=== PATIENT | male | born 1970 | race African-American/Black ===

== ENCOUNTER 2018-07-10 23:52 | Emergency (ER) | payer SELFPAY ==
[~2018-07-10] VITALS: Ht 195.6 cm; Wt 145.1 kg
[~2018-07-10 23:52] MED LIST: CEFP500T4 PO; METH4TAB PO
[2018-07-11] MEDS ORDERED: DEXAMETHASONE 4 MG/ML SDV (DECADRON) ONE (00:46)
[2018-07-11] MEDS ORDERED: RT-ALBUTEROL/IPRATROPIUM 3 ML (DUONEB) VIAL ONE (00:46)
[2018-07-11 00:52] LABS: BASOPHILS % (AUTO) 0 % (0-10); EOSINOPHILS # (AUTO) 0.1 10^3/uL (0.0-0.3); EOSINOPHILS % (AUTO) 1 % (0-10); HEMATOCRIT 37 % (40-54); HEMOGLOBIN 12.5 G/DL (13.3-17.7); LYMPHOCYTES # (AUTO) 1.3 X 10^3 (1.0-4.0); LYMPHOCYTES % (AUTO) 16 % (12-44); MEAN CORPUSCULAR HEMOGLOBIN 30 PG (25-34); MEAN CORPUSCULAR HGB CONC 34 G/DL (32-36); MEAN CORPUSCULAR VOLUME 90 FL (80-99); MEAN PLATELET VOLUME 11.1 FL (7.4-10.4); MONOCYTES % (AUTO) 13 % (0-12); NEUTROPHILS # (AUTO) 5.3 X 10^3 (1.8-7.8); NEUTROPHILS % (AUTO) 69 % (42-75); PLATELET COUNT 270 10^3/uL (130-400); RED BLOOD COUNT 4.13 10^6/uL (4.35-5.85); WHITE BLOOD COUNT 7.6 10^3/uL (4.3-11.0)
[2018-07-11] MEDS ORDERED: methylPREDNISolone 125 MG (Solu-MEDROL) VIAL IV STA (00:52)
[2018-07-11] MEDS ORDERED: RT-ALBUTEROL/IPRATROPIUM 3 ML (DUONEB) VIAL INH ONE (01:00)
[2018-07-11] MEDS ORDERED: DEXAMETHASONE 4 MG/ML SDV (DECADRON) IH ONE (01:00)
[2018-07-11 01:06] LABS: PROTHROMBIN TIME PATIENT 13.4 SEC (12.2-14.7)
[2018-07-11 01:11] LABS: ALANINE AMINOTRANSFERASE 49 U/L (0-55); ALBUMIN 3.4 GM/DL (3.2-4.5); ALKALINE PHOSPHATASE 42 U/L (40-136); BILIRUBIN,TOTAL 0.8 MG/DL (0.1-1.0); BUN/CREATININE RATIO 11; CALCIUM 8.3 MG/DL (8.5-10.1); CARBON DIOXIDE 19 MMOL/L (21-32); CHLORIDE 108 MMOL/L (98-107); CREATININE SERUM 1.32 MG/DL (0.60-1.30); GFR ESTIMATED > 60; GLUCOSE 148 MG/DL (70-105); POTASSIUM 5.8 MMOL/L (3.6-5.0); SODIUM 139 MMOL/L (135-145); TOTAL PROTEIN 6.6 GM/DL (6.4-8.2)
[2018-07-11] MEDS ORDERED: AZITHROMYCIN 250 MG TAB (ZITHROMAX) PO ONE (01:45)
[2018-07-11] MEDS ORDERED: NITROGLYCERIN 2% OINT 1 GM UNIT DOSE PACKET TOP ONE (01:45)
[2018-07-11] MEDS ORDERED: cefTRIAXone FOR IV USE 1,000 MG in NS (IVPB) 50 ML IV ONE (01:45)
[2018-07-11] MEDS ORDERED: FUROSEMIDE 40 MG/4 ML INJ (LASIX) IVP ONE (01:45)
--- NOTE | 2018-07-11 01:57 | ED Respiratory ---
General Chief Complaint: Cough/Cold/Flu Symptoms Stated Complaint: POSS PNEUMONIA,SOB Nursing Triage Note: Pt has had cough/SOB since before . Pt stated it has been getting worse. Pt stated his cough is productive and sputum is white. Source: patient History of Present Illness Date Seen by Provider: Jul 11, 2018 Time Seen by Provider: 00:40 Initial Comments PT ARRIVES VIA POV FROM HOME C/O SHORTNESS OF BREATH SINCE THE FIRST May C/O PRODUCTIVE COUGH WITH WHITE SPUTUM SINCE FIRST May HAD SUBJECTIVE FEVER WHEN SYMPTOMS FIRST BEGAN BUT DOES NOT THINK HE HAS HAD FEVER FOR SEVERAL WEEKS--TEMP 100.1 ON ARRIVAL--PT UNAWARE OF FEVER NO CHEST PAIN OR PAIN WITH BREATHING NO SWELLING IN LEGS/ FEET OR PAIN IN CALVES PT HAS NOT SOUGHT CARE UNTIL TONIGHT STATES "THE COLD AIR WAS TAKING MY BREATH AWAY" STATES HE HAS HISTORY OF ASTHMA AND HAS ALBUTEROL INHALER--STATES HE USED IT A COUPLE OF TIMES TODAY AND IT HELPED. HAS NOT TAKEN ANYTHING ELSE FOR SYMPTOMS STATES HE HAS BEEN AROUND SOMEONE WITH THE SAME SYMPTOMS, WHO WAS DX WITH MYCOPLASMA PNEUMONIA AROUND THE TIME THAT HE FIRST STARTED HAVING SYMPTOMS PCP: DR. MILAN AT [facility] Allergies and Home Medications Allergies Coded Allergies: No Known Drug Allergies (Unverified Allergy, Mild, 09/30/09) Home Medications Azithromycin 500 Mg Tablet, 500 MG PO DAILY FOR INFECTION Prescribed by: SINDY SHARPE on 07/11/18405 Benzonatate 100 Mg Capsule, 1-2 TAB PO TID Prescribed by: SINDY SHARPE on 07/11/18405 Cefdinir 300 Mg Capsule, 300 MG PO BID Prescribed by: SINDY SHARPE on 07/11/18405 Cefprozil 500 Mg Tablet, 1 EACH PO BID FOR INFECTION Prescribed by: SINDY SHARPE on 10/01/09 0101 Furosemide 40 Mg Tablet, 40 MG PO DAILY Prescribed by: SINDY SHARPE on 07/11/18405 Guaifenesin/Dextromethorphan 1 Each Tbmp.12hr, 1 EACH PO BID Prescribed by: SINDY SHARPE on 07/11/18405 Hydralazine HCl 10 Mg Tablet, 10 MG PO TID Prescribed by: SINDY SHARPE on 07/11/18405 Methylprednisolone 4 Mg/Dose-Pack Tab.ds.pk, 0 PO UD FOR BREATHING Prescribed by: SINDY SHARPE on 10/01/09 010 Methylprednisolone 4 Mg Tab.ds.pk, 4 MG PO UD Prescribed by: SINDY SHARPE on 07/11/18 040 Potassium Chloride 20 Meq Tab.er.prt, 20 MEQ PO DAILY Prescribed by: SINDY SHARPE on 07/11/18405 Patient Home Medication List Home Medication List Reviewed: Yes Review of Systems Review of Systems Constitutional: see HPI, weight loss (INTENTIONAL WEIGHT LOSS OF 180 LBS IN LAST 24 MONTHS--USED TO WEIGH 498 LBS. ) EENTM: no symptoms reported Respiratory: see HPI, cough, dyspnea on exertion, phlegm, short of breath, wheezing Cardiovascular: no symptoms reported; No chest pain, No edema, No palpitations , No syncope, No vascular heart diseas; other (PT STATES HE TAKES BOTH QUINAPRIL AND LISINOPRIL FOR HTN, IN ADDITION TO A MEDICATION FOR HIGH CHOLESTEROL) Gastrointestinal: no symptoms reported Genitourinary: no symptoms reported Musculoskeletal: no symptoms reported Skin: no symptoms reported Psychiatric/Neurological: No Symptoms Reported Hematologic/Lymphatic: No Symptoms Reported Immunological/Allergic: no symptoms reported Past [id number]-[id number] Hx Patient Social History Alcohol Use: Denies Use Recreational Drug Use: Yes (THC) Drug of Choice: Marijuana Smoking Status: Former Smoker (OCCASIONALLY SMOKED IN THE PAST, BUT NOT FOR A LONG TIME) 2nd Hand Smoke Exposure: No Recent Foreign Travel: No Contact w/Someone Who Travel: No Recent Infectious Disease Expo: No Recent Hopitalizations: No Physical Abuse: No Sexual Abuse: No Mistreated: No Fear: No Seasonal Allergies Seasonal Allergies: No Past Medical History Surgeries: Yes (LEFT KNEE REPLACEMENT; LEFT FACIAL/ ORBITAL FRACTURES REPAIRED) Joint Replacement, Orthopedic Respiratory: Yes Asthma Cardiac: Yes High Cholesterol, Hypertension Neurological: No Genitourinary: No Gastrointestinal: No Musculoskeletal: Yes (LEFT KNEE REPLACEMENT) Endocrine: No HEENT: No Cancer: No Psychosocial: No Integumentary: No Blood Disorders: No Physical Exam Vital Signs - First Documented 07/11/18 04:20 FiO2 95 Capillary Refill : Less Than 3 Seconds Height: 6'5.00" Weight: 320lbs. oz. 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, no motor/sensory deficits, alert, normal mood/affect, oriented x 3 Skin: normal color (PT IS BLACK), warm/dry Focused Exam Lactate Level 07/11/18 00:41: Lactic Acid Level 1.79 Lactic Acid Level Laboratory Tests Test 07/11/18 00:41 Lactic Acid Level 1.79 MMOL/L (0.50-2.00) Progress/Results/Core Measures Suspected Sepsis Recent Fever Within 48 Hours: Yes Infection Criteria Present: Suspected New Infection New/Unexplained Altered Menta: No Sepsis Screen: Possible Sepsis Risk SIRS Temperature:100.1 Pulse: 101 Respiratory Rate: 18 Laboratory Tests 07/11/18 00:41: White Blood Count 7.6 Blood Pressure 183 /120 Mean: 141 07/11/18 00:41: Lactic Acid Level 1.79 Laboratory Tests 07/11/18 00:41: Creatinine 1.32H, INR Comment 1.0, Platelet Count 270, Total Bilirubin 0.8 Results/Orders Lab Results Laboratory Tests Test 07/11/18 00:29 07/11/18 00:41 07/11/18 01:09 Range/Units Urine Color YELLOW Urine Clarity SL CLOUDY Urine pH 5 5-9 Urine Specific [place] 1.015 L 1.016-1.022 Urine Protein 1+ H NEGATIVE Urine Glucose (UA) NEGATIVE NEGATIVE Urine Ketones NEGATIVE NEGATIVE Urine Nitrite NEGATIVE NEGATIVE Urine Bilirubin NEGATIVE NEGATIVE Urine Urobilinogen NORMAL NORMAL MG/DL Urine Leukocyte Esterase NEGATIVE NEGATIVE Urine RBC (Auto) NEGATIVE NEGATIVE Urine RBC NONE /HPF Urine WBC NONE /HPF Urine Squamous Epithelial Cells RARE /HPF Urine Crystals NONE /LPF Urine Bacteria NEGATIVE /HPF Urine Casts NONE /LPF Urine Mucus NEGATIVE /LPF Urine Culture Indicated NO White Blood Count 7.6 4.3-11.0 10^3/uL Red Blood Count 4.13 L 4.35-5.85 10^6/uL Hemoglobin 12.5 L 13.3-17.7 G/DL Hematocrit 37 L 40-54 % Mean Corpuscular Volume 90 80-99 FL Mean Corpuscular Hemoglobin 30 25-34 PG Mean Corpuscular Hemoglobin Concent 34 32-36 G/DL Red Cell Distribution Width 16.0 H 10.0-14.5 % Platelet Count 270 130-400 10^3/uL Mean Platelet Volume 11.1 H 7.4-10.4 FL Neutrophils (%) (Auto) 69 42-75 % Lymphocytes (%) (Auto) 16 12-44 % Monocytes (%) (Auto) 13 H 0-12 % Eosinophils (%) (Auto) 1 0-10 % Basophils (%) (Auto) 0 0-10 % Neutrophils # (Auto) 5.3 1.8-7.8 X 10^3 Lymphocytes # (Auto) 1.3 1.0-4.0 X 10^3 Monocytes # (Auto) 1.0 0.0-1.0 X 10^3 Eosinophils # (Auto) 0.1 0.0-0.3 10^3/uL Basophils # (Auto) 0.0 0.0-0.1 10^3/uL Prothrombin Time 13.4 12.2-14.7 SEC INR Comment 1.0 0.8-1.4 Activated Partial Thromboplast Time 25 24-35 SEC Sodium Level 139 135-145 MMOL/L Potassium Level 5.8 H 3.6-5.0 MMOL/L Chloride Level 108 H 98-107 MMOL/L Carbon Dioxide Level 19 L 21-32 MMOL/L Anion Gap 12 5-14 MMOL/L Blood Urea Nitrogen 14 7-18 MG/DL Creatinine 1.32 H 0.60-1.30 MG/DL Estimat Glomerular Filtration Rate > 60 BUN/Creatinine Ratio 11 Glucose Level 148 H 70-105 MG/DL Lactic Acid Level 1.79 0.50-2.00 MMOL/L Calcium Level 8.3 L 8.5-10.1 MG/DL Corrected Calcium 8.8 8.5-10.1 MG/DL Magnesium Level 3.0 H 1.8-2.4 MG/DL Total Bilirubin 0.8 0.1-1.0 MG/DL Aspartate Amino Transf (AST/SGOT) 80 H 5-34 U/L Alanine Aminotransferase (ALT/SGPT) 49 0-55 U/L Alkaline Phosphatase 42 40-136 U/L Troponin I < 0.30 <0.30 NG/ML B-Type Natriuretic Peptide 631.5 H <100.0 PG/ML Total Protein 6.6 6.4-8.2 GM/DL Albumin 3.4 3.2-4.5 GM/DL Micro Results Microbiology 07/11/18 Influenza Types A,B Antigen (SHAD) - Final, Complete My Orders Orders - SINDY SHARPE DO Saline Lock/Iv-Start (07/11/18 00:42) Ekg Tracing (07/11/18 00:42) O2 (07/11/18 00:42) Monitor-Rhythm Ecg Trace Only (07/11/18 00:42) BNP (07/11/18 00:42) Cbc With Automated Diff (07/11/18 00:42) Comprehensive Metabolic Panel (07/11/18 00:42) Lactic Acid Analyzer (07/11/18 00:42) Magnesium (07/11/18 00:42) Protime With Inr (07/11/18 00:42) Partial Thromboplastin Time (07/11/18 00:42) Troponin I (07/11/18 00:42) Blood Culture (07/11/18 00:42) Influenza A And B Antigens (07/11/18 00:42) Chest 1 View, Ap/Pa Only (07/11/18 00:42) Dexamethasone Injection (Decadron Inject (07/11/18 00:46) Albuterol/Ipra Inhalation Soln (Duoneb I (07/11/18 00:46) Albuterol/Ipra Inhalation Soln (Duoneb I (07/11/18 01:00) Dexamethasone Injection (Decadron Inject (07/11/18 01:00) Rt Request For Service (07/11/18 00:52) Methylprednisolone Sod Succ (Solu-Medrol (07/11/18 00:52) Svn Small Volume Nebulizer (07/11/18 00:52) Svn Small Volume Nebulizer (07/11/18 00:52) Sputum Culture (07/11/18 00:53) Mycoplasma Antibodies (07/11/18 00:53) Furosemide Injection (Lasix Injection) (07/11/18 01:45) Nitroglycerin Ointment (Nitrobid Ointme (07/11/18 01:45) Ceftriaxone For Iv Use (Rocephin For I (07/11/18 01:45) Azithromycin Tablet (Zithromax Tablet) (07/11/18 01:45) Hydralazine Injection (Apresoline Inject (07/11/18 03:15) Ua Culture If Indicated (07/11/18 03:16) Medications Given in ED Current Medications Medications Dose Ordered Sig/Bill Route Start Time Stop Time Status Last Admin Dose Admin Albuterol/ Ipratropium 3 ml ONCE ONCE INH 07/11/18 01:00 07/11/18 01:01 DC 07/11/18 00:56 3 ML Azithromycin 1,000 mg ONCE ONCE PO 07/11/18 01:45 07/11/18 01:47 DC 07/11/18 02:15 1,000 MG Ceftriaxone Sodium 1000 mg/ Sodium Chloride 50 ml @ 100 mls/hr ONCE ONCE IV 07/11/18 01:45 07/11/18 02:14 DC 07/11/18 02:14 100 MLS/HR Dexamethasone Sodium Phosphate 20 mg ONCE ONCE IH 07/11/18 01:00 07/11/18 01:01 DC 07/11/18 00:56 20 MG Furosemide 80 mg ONCE ONCE IVP 07/11/18 01:45 07/11/18 01:47 DC 07/11/18 02:15 80 MG Hydralazine HCl 10 mg ONCE ONCE IV 07/11/18 03:15 07/11/18 03:16 DC 07/11/18 03:29 10 MG Nitroglycerin 1 inch ONCE ONCE TOP 07/11/18 01:45 07/11/18 01:47 DC 07/11/18 02:15 1 INCH Vital Signs/I&O 07/11/18 07/11/18 07/11/18 07/11/18 00:41 00:41 00:41 04:14 Temp 100.1 100.1 98.4 Pulse 101 101 99 Resp 18 20 15 B/P (MAP) 183/120 (141) 183/120 149/103 (118) Pulse Ox 93 93 95 O2 Delivery Room Air Room Air Room Air 07/11/18 04:20 Pulse Ox 95 O2 Delivery Room Air FiO2 95 Capillary Refill : Less Than 3 Seconds Blood Pressure Mean: 141 Progress Note : Progress Note NO DETERIORATION IN PT'S CONDITION DURING ER STAY INCREASED AERATION AND DECREASED WHEEZING AFTER NEB TREATMENT. PT STATES HE FEELS BETTER GIVEN NITROPASTE + HYDRALAZINE WITH DECREASED IN BP--BP DOWN TO 120'S/80'S AT DISMISSAL GIVEN LASIX WITH URINE OUTPUT OF 3575 ML O2 SATS REMAINED IN UPPER 90'S ON ROOM AIR TEMP DOWN AND HEART RATE DOWN PT NO LONGER DYSPNEIC OFFERED ADMIT AND PT DECLINED. ADVISED PT TO FOLLOW UP WITH DR. MILAN IN 1-2 DAYS FOR FURTHER CARE, OR RETURN TO ER IF WORSE ECG Initial ECG Impression Date: Jul 11, 2018 Initial ECG Impression Time: 00:40 Initial ECG Rate: 103 Initial ECG Rhythm: S.Tach Initial ECG Impression: Nonspecific Changes Initial ECG Comparisson: No Previous ECG Available Diagnostic Imaging Comments CXR--CARDIOMEGALY WITH CHF AND / OR BIBASILAR INFILTRATES, PENDING RADIOLOGIST REVIEW Reviewed: Reviewed by Me Departure Impression Primary Impression: Bronchitis Additional Impressions: CHF (congestive heart failure) Uncontrolled hypertension Disposition: HOME, SELF-CARE Condition: Improved Departure-Patient Inst. Referrals: OSWALDO MILAN,LOCAL PHYSICIAN (PCP) Primary Care Physician Patient Instructions: Acute Bronchitis, Adult (DC), Controlling Your Blood Pressure Through Lifestyle, DASH Diet, Heart Failure, Adult (DC), High Blood Pressure (DC) Add. Discharge Instructions: CONTINUE YOUR REGULAR MEDICATIONS PRESCRIBED DO NOT MISS DOSES USE YOUR ALBUTEROL INHALER EVERY 4 HOURS NEEDED FOR WHEEZING TYLENOL 1 GRAM/ MOTRIN 800 MG 4 TIMES A DAY FOR PAIN OR FEVER FOLLOW UP WITH DR. MILAN IN 1-2 DAYS FOR FURTHER CARE RETURN TO ER IF WORSE All discharge instructions reviewed with patient and/or family. Voiced understanding. Scripts Potassium Chloride (Potassium Chloride) 20 Meq Tab.er.prt 20 MEQ PO DAILY, #5 TAB Prov: DELL,SINDY K DO 07/11/18 Furosemide (Lasix) 40 Mg Tablet 40 MG PO DAILY, #5 TAB Prov: DELL,SINDY K DO 07/11/18 Guaifenesin/Dextromethorphan (Mucinex Dm ER 1,200-60 mg Tab) 1 Each Tbmp.12hr 1 EACH PO BID for 10 Days, #20 EA Prov: DELL,SINDY K DO 07/11/18 Benzonatate (TESSALON PERLES) 100 Mg Capsule 1-2 TAB PO TID for Cough, #30 CAP Prov: DELL,SINDY K DO 07/11/18 Hydralazine HCl (Hydralazine HCl) 10 Mg Tablet 10 MG PO TID, #15 TAB Prov: SINDY SHARPE DO 07/11/18 Azithromycin (Zithromax) 500 Mg Tablet 500 MG PO DAILY, #5 TAB FOR INFECTION Prov: SINDY SHARPE DO 07/11/18 Cefdinir (Cefdinir) 300 Mg Capsule 300 MG PO BID for FOR INFECTION, #20 CAP Prov: SINDY SHARPE DO 07/11/18 Methylprednisolone (Medrol) 4 Mg Tab.ds.pk 4 MG PO UD, #1 PKG Prov: SINDY SHARPE DO 07/11/18 SINDY SHARPE DO Jul 11, 2018 01:57
[2018-07-11] MEDS ORDERED: hydrALAZINE (APESOLINE) 20 MG/ML VIAL IV ONE (03:15)
[2018-07-11 03:22] LABS: BACTERIA,URINE NEGATIVE /HPF; BILIRUBIN,URINE NEGATIVE (NEGATIVE); CLARITY,URINE SL CLOUDY; COLOR,URINE YELLOW; GLUCOSE, URINE (UA) NEGATIVE (NEGATIVE); KETONES,URINE NEGATIVE (NEGATIVE); LEUKOCYTE ESTERASE ,URINE NEGATIVE (NEGATIVE); NITRITE,URINE NEGATIVE (NEGATIVE); PH,URINE 5 (5-9); PROTEIN,URINE 1+ (NEGATIVE); SQUAMOUS EPITHELIAL CELL,UR RARE /HPF; UROBILINOGEN,URINE NORMAL (NORMAL)
[2018-07-11] MEDS ORDERED: FURO-124 PO (04:06)
[2018-07-11] MEDS ORDERED: HYDR-3922 PO (04:06)
[2018-07-11] MEDS ORDERED: METH4TAB PO (04:06)
[2018-07-11] MEDS ORDERED: POTA20TA15 PO (04:06)
[2018-07-11] MEDS ORDERED: CEFD300C3 PO (04:06)
[2018-07-11] MEDS ORDERED: GUAI1TBM19 PO (04:06)
[2018-07-11] MEDS ORDERED: BENZ100C18 PO (04:06)
[2018-07-11] MEDS ORDERED: AZIT500T PO (04:06)
[2018-07-11 04:14] VITALS: BP 149/103
--- NOTE | 2018-07-11 07:00 | Diagnostic Imaging Report ---
INDICATION: Shortness of breath Portable chest 1:37 AM Heart appears enlarged. Pulmonary vascularity is normal. Lungs are clear. IMPRESSION: Cardiomegaly without evidence of pulmonary venous hypertension. Dictated by: Dictated on workstation # [id number]
== END 2018-07-11 04:14 | disposition home or self-care (01) ==
LOC: EDUNIT# 23:52 → ER 23:58
DX: J40 Bronchitis, not specified as acute or chronic (principal); I11.0 Hypertensive heart disease with heart failure; I50.9 Heart failure, unspecified; F12.10 Cannabis abuse, uncomplicated; J45.909 Unspecified asthma, uncomplicated; E78.00 Pure hypercholesterolemia, unspecified; Z87.891 Personal history of nicotine dependence; Z96.652 Presence of left artificial knee joint; Z79.51 Long term (current) use of inhaled steroids
CPT/HCPCS: 36415; 71045; 80053; 81000; 83605; 83735; 83880; 84484; 85025; 85610; 85730; 86738; 87040; 87070; 87205; 87804; 93041